=== PATIENT | male | born 1955 | race Caucasian/White ===

== ENCOUNTER 2018-12-13 11:13 | Outpatient (CLI) | payer OTHER ==
[2018-12-13 12:07] LABS: #Basophils 0.1 thou/uL (0.0-0.2); #Eosinphils 0.5 thou/uL (0.0-0.7); #Lymphocytes 2.4 thou/uL (1.20-3.40); #Monocytes 0.7 thou/uL (0.11-0.59); #Neutrophils 1.6 thou/uL (1.40-6.50); %Basophils 1.2 % (0.0-1.0); %Eosinophils 9.2 % (0.0-10.0); %Monocytes 12.8 % (0.0-10.0); %Neutrophils 30.9 % (42.0-75.0); Hemoglobin 15.5 g/dL (14.0-18.0); Mean Corpuscular HGB CONC 33.4 g/dL (32.0-36.0); Mean Corpuscular Hemoglobin 30.7 pg (27.0-31.0); Mean Corpuscular Volume 91.9 fL (78.0-98.0); Mean Platelet Volume 7.5 fL (7.4-10.4); Platelet Count 205 thou/uL (130-400); RBC Distribution Width 11.1 % (11.5-14.5); Red Blood Cell (RBC) Count 5.06 mill/uL (4.70-6.10); White Blood Cell (WBC) Count 5.3 thou/uL (4.8-10.8)
--- NOTE | 2018-12-13 12:29 | EKG ---
Test Reason : Blood Pressure : / mmHG Vent. Rate : 069 BPM Atrial Rate : 069 BPM P-R Int : 184 ms QRS Dur : 080 ms QT Int : 414 ms P-R-T Axes : 044 011 014 degrees QTc Int : 443 ms Normal sinus rhythm RSR' or QR pattern in V1 suggests right ventricular conduction delay Inferior infarct , age undetermined Anterior infarct , age undetermined Poor anterior R wave progression Abnormal ECG No previous ECGs available Confirmed by DR. Gayathri COLE ([id number]) on 12/13/2018 12:28:42 PM Referred By: JOHN Confirmed By:DR. Gayathri COLE
[2018-12-13 12:49] LABS: Anion Gap 13 mmol/L (10-20); BUN (Urea Nitrogen) 20 mg/dL (8.4-25.7); Calc. Creatinine Clearance 0 mL/min (70-130); Calcium 9.7 mg/dL (7.8-10.44); Carbon Dioxide 24 mmol/L (23-31); Chloride 104 mmol/L (98-107); Estimated GFR-MDRD 58; Glucose 89 mg/dL (80-115); Potassium 4.1 mmol/L (3.5-5.1); Sodium 137 mmol/L (136-145)
== END 2018-12-13 11:14 | disposition home or self-care (01) ==
LOC: LABBT 11:13
PROVIDERS: ATTEND Specialist
DX: Z01.818 Encounter for other preprocedural examination (principal); K42.9 Umbilical hernia without obstruction or gangrene; K40.20 Bilateral inguinal hernia, without obstruction or gangrene, not specified as recurrent
CPT/HCPCS: 80048; 85025; 93005; 93010

== ENCOUNTER 2018-12-19 08:07 | Day surgery (SDC) | payer OTHER ==
[2018-12-13 11:21] VITALS: BMI 27.1
[2018-12-19] MEDS ORDERED: Bupivacaine/Epinephrine 0.25% 30 ML VIAL ONE (08:53)
[2018-12-19] MEDS ORDERED: ceFAZolin Sodium (SDC) 2 GM/100 ML BAG ONE (09:18)
[2018-12-19] MEDS ORDERED: Ketorolac Tromethamine 30 MG/ML VIAL ONE (09:18)
[2018-12-19] MEDS ORDERED: Fentanyl 100 MCG/2 ML VIAL ONE (10:44)
[2018-12-19] MEDS ORDERED: Tamsulosin HCl 0.4 MG CAP ONE (16:24)
[2018-12-19] MEDS ORDERED: HYDROcodone/Acetaminophen 5/325 mg Tablet ONE (19:33)
--- NOTE | 2018-12-19 21:39 | OP ---
DATE OF PROCEDURE: 12/19/2018 PREOPERATIVE DIAGNOSIS: Bilateral inguinal hernia, umbilical hernia. POSTOPERATIVE DIAGNOSIS: Bilateral inguinal hernia, umbilical hernia with finding of bilateral pantaloon hernias and umbilical hernia. OPERATIONS PERFORMED: Robotic repair of bilateral pantaloon inguinal hernias with 3DMax mesh, open umbilical hernia repair. ANESTHESIA: General endotracheal. INDICATIONS: The patient is a 63-year-old white male. He presented with symptomatic right inguinal hernia. On examination, I was able to discern that he had bilateral inguinal hernias. He also had a relatively small umbilical hernia. He is taken to the operating at this time for repair of all these hernias. DESCRIPTION OF OPERATION: Informed consent was obtained and patient was taken to the operating room, where general endotracheal anesthesia was obtained with the patient in supine position. Abdomen was prepped with ChloraPrep and draped in sterile fashion. Local anesthetic was infiltrated using 0.25% Marcaine with epinephrine and supraumbilical incision was created. Dissection was carried through skin and subcutaneous tissue. Herniated preperitoneal umbilical fat was dissected and excised. The hernia defect was identified. A 12 mm port was passed through this with internal balloon. The balloon was inflated and the port was pulled back into the appropriate location. Pneumoperitoneum established using carbon dioxide. Under direct vision, two 8 mm bilateral robotic ports were placed at the supraumbilical level. The robot was docked to these ports and the camera, and operation was continued from the robotic console. The inguinal area was explored bilaterally. There was an obvious fairly large and relatively deep direct hernia on the left side. On the right side from within the abdomen, the dominant hernia appeared to be an indirect hernia. I turned my attention first to the right side. A transverse peritoneal incision was created several centimeters superior to the hernia defect. Preperitoneal dissection was carried inferiorly. The pubic tubercle and Anuj ligament were identified medially. As the peritoneum was dissected, substantial direct defect was appreciated with significant herniated fat within this. There was a relatively small but definitely present indirect hernia. The peritoneum was dissected off all cord structures and reflected posteriorly. The preperitoneal space was dissected laterally to identify the iliopubic tract. A large 3DMax mesh patch was obtained and placed in the preperitoneal space. It was secured in place with 3 interrupted sutures of 2-0 Vicryl, placing one to the pubic tubercle and one to the anterior abdominal wall medial to the epigastric vessels and one to the anterior abdominal wall lateral to the epigastric vessels. The peritoneum was then closed with a running suture of 3-0 Stratafix. Attention was then turned to the left side. A mirror-image peritoneal incision was created and a mirror-image dissection was carried out. Findings included again a smaller indirect hernia with a dominant direct hernia. All areas were dissected meticulously and hemostasis was also meticulous. Again, three Vicryl sutures were placed to the large 3DMax mesh patch and the peritoneum was again closed. The fascial defect at the umbilicus was closed with a [id number] suture of 0 Vicryl using a GraNee needle. The lateral ports were removed under direct vision. Pneumoperitoneum was carefully evacuated. 0.25% Marcaine with epinephrine was infiltrated into each port site. Skin edges approximated with 4-0 Monocryl subcuticular suture. Dermabond was placed externally. There were no complications. Blood loss was negligible. The patient tolerated the procedure well and was taken to recovery room in stable condition. Job ID: [id number]
== END 2018-12-19 20:03 | disposition home or self-care (01) ==
LOC: SDC 08:07
PROVIDERS: ATTEND Specialist
PROC: 0YUA4JZ Supplement Bilateral Inguinal Region with Synthetic Substitute, Percutaneous Endoscopic Approach (ICD-10-PCS; principal; 2018-12-19)
PROC: 0WQF0ZZ Repair Abdominal Wall, Open Approach (ICD-10-PCS; principal; 2018-12-19)
DX: K40.20 Bilateral inguinal hernia, without obstruction or gangrene, not specified as recurrent (principal); K42.9 Umbilical hernia without obstruction or gangrene; I10 Essential (primary) hypertension; F41.9 Anxiety disorder, unspecified; K21.9 Gastro-esophageal reflux disease without esophagitis; M19.90 Unspecified osteoarthritis, unspecified site; Z91.038 Other insect allergy status; Z79.899 Other long term (current) drug therapy
CPT/HCPCS: C1781; J0131; J0690; J1885; J3010